=== PATIENT | female | born 1940 | race Caucasian/White ===

== ENCOUNTER 2018-09-15 09:57 | Emergency (ER) | payer MEDICARE, BC, SELFPAY ==
[2018-09-15 10:02] VITALS: BP 178/96; PULSE 77; RESP 16; TEMP 36.4; O2SAT 94
--- NOTE | 2018-09-15 10:38 | NUR.NOTE ---
patient holding pressure to finger, bleeding controlled Nursing Note:
--- NOTE | 2018-09-15 10:56 | ED.GENADUL_ITS ---
Discharge Plan Disposition Patient Disposition: HOME Condition: Improving Discharge Details Chief Complaint: Laceration Clinical Impression: Laceration of finger of left hand Primary Care Provider: Randy Caldwell ED Provider: Wale Medina Home Meds and New Rx's Prescriptions: No Action CALCIUM 600 + D TABLET 1 EACH tablet 1 ea PO DAILY RF: 0 simvastatin 40 MG tablet 40 mg PO DAILY RF: 0 fluticasone-salmeterol [Advair Diskus] 1 EACH blister with device 1 puff Inhalation BID RF: 0 benzonatate 100 MG capsule 100 mg PO TID RF: 0 albuterol sulfate [ProAir HFA] 8.5 GM HFA aerosol inhaler 2 puff Inhalation Q6H PRN RF: 0 sodium chloride [Saline Nose] 45 ML aerosol,spray 1 spray NS BID RF: 0 losartan-hydrochlorothiazide 1 EACH tablet 1 tab-cap PO DAILY Qty: 90 RF: 12 codeine-guaifenesin [Cheratussin AC] 473 ML liquid 10 ml PO HS PRNQty: 120 RF: 0 Discharge Instructions Instructions: Finger Laceration (ED) Additional Instructions: Please keep initial dressing on for the first 24-48 hours then you may remove this and clean wound with mild soap and water and otherwise keep wound clean and dry. Return immediately for any signs of infection otherwise return to emergency department in 12-14 days for suture removal. Referrals: [facility] Emergency Dept. [Outside] (12-14 days for suture removal) Medical Decision Making Patient presents the emergency department for chief complaint of left index finger laceration. Patient states this happened about 45 minutes prior to arrival while she was cutting chicken with a knife. Patient denies any other injury or trauma. Patient has full range of motion, two-point discrimination, normal tendon exam, normal cap refill distal to the injury. Patient consented to wound closure. Patient also consented to wound closure by medical student which I saw and observed. Please see procedure note for which was appropriately performed and done. Patient was unsure of last tetanus and while she thought it was up-to-date she was not completely sure. Did offer tetanus to be given today or for her to wait 48 hours and contact her primary care provider which she stated that she would just prefer to get it here today. Return precautions were discussed. After discussion of diagnosis and plan of care patient has no further needs, questions, or concerns and states clear understanding to return to the emergency department for any worsening symptoms. HPI General Mode of arrival: ambulatory . Date/Time Provider Initiated Documentation: 09/15/18 10:02 . Limitations to Documentation: no limitations . Information obtained by: RN notes reviewed . History of Present Illness 78 year old F presents to the emergency department with the chief complaint of Finger laceration, described as mild, with intensity rated at 1. Quality is described as sharp, and is localized to the left and upper extremity. Patient started experiencing this minute(s) (45) and it has been constant. Patient notes no other symptoms.. Patient did receive the following treat ments prior to arrival, none Related Data Home Medications Medication Instructions Recorded Confirmed Calcium 600 + D Tablet 1 ea PO DAILY 09/06/13 fluticasone-salmeterol [Advair 1 puff INHALATION BID disk 09/10/13 100/50 Diskus] simvastatin 40 mg PO DAILY tab-cap 09/10/13 albuterol sulfate [Proair Hfa] 2 puff INHALATION Q6H PRN inhaler 07/30/16 benzonatate 100 mg PO TID tab-cap 07/30/16 sodium chloride [Saline Nose [place]] 1 spray NS BID spray 07/30/16 losartan-hydrochlorothiazide 1 tab-cap PO DAILY #90 tab-cap 09/28/16 codeine-guaifenesin [Cheratussin 10 ml PO HS PRN #120 ml 10/05/16 Ac Syrup] Allergies Allergy/AdvReac Type Severity Reaction Status Date / Time lisinopril AdvReac Intermediate cough Unverified 09/28/16 08:21 General Stated Complaint: Laceration IVON: 4 Review of Systems Cardiovascular Denies syncope and Denies lightheadedness Musculoskeletal Denies deformity, Denies limited range of motion and Denies numbness Integumentary/Breasts Reports as per HPI Neurologic Denies syncope, Denies numbness and Denies paresthesias PFSH Social History Smoking and Tabacco status: Former Tobacco Use Exam Const General: cooperative and no acute distress Orientation: alert, awake and oriented x3 Limitations: mental status not altered Resp Effort & Inspection: normal respiratory effort and able to speak in complete sentences Cardio Rate: regular rate Rhythm: regular rhythm Neuro General: alert, awake, oriented x3, gait normal, tone normal, moves all extremities, normal light touch, pain and propioception and no focal motor deficits Motor: no movement abnormalities noted Sensory Exam: no sensory deficits noted Extrem General: normal exam except as noted Left upper extremity: hand Details: neuromotor exam normal, neurosensory exam normal, tendon exam normal, tenderness Location: of the 2nd digit Location: at the PIP joint and on the palmar aspect, vascular exam Details: radial pulse present and normal capillary refill, normal ROM of fingers and laceration (Left index palmar aspect at PIP) Course Vital Signs Temperature 36.4 C L 09/15/18 10:02 Pulse 77 09/15/18 10:02 Respiratory Rate 16 09/15/18 10:02 Blood Pressure 178/96 H 09/15/18 10:02 Pulse Oximetry 94 L 09/15/18 10:02 Temperature 36.4 C L 09/15/18 10:02 Temperature Source Temporal Artery Scan 09/15/18 10:02 Pulse 77 09/15/18 10:02 Respiratory Rate 16 09/15/18 10:02 Respiratory Effort Non-Labored 09/15/18 10:08 Blood Pressure 178/96 H 09/15/18 10:02 Blood Pressure Position Sitting 09/15/18 10:02 Pulse Oximetry 94 L 09/15/18 10:02 Oxygen Delivery Method Room Air 09/15/18 10:02 Oxygen Flow Rate 0 09/15/18 10:02 Pain Level 0 09/15/18 10:11 Procedures Laceration Laceration 1: Site: upper extremity Side (If applicable): left Size (cm): 2 Description: linear Depth: simple, single layer Local Anesthetic: Lidocaine 1% (Digital block) Amount of anesthesia used (mL): 4 Pre-repair: wound explored, irrigated extensively and deep structures intact Skin layer closed with: nylon Size (cm): 4-0 Number of sutures: 4 Technique: simple, interrupted
[2018-09-15] MEDS: Lidocaine 1% Multi-Dose 50 ML VIAL (11:43)
== END 2018-09-15 11:44 | disposition home or self-care (01) ==
PROVIDERS: Emergency Provider Nurse Practitioner Family; PCP Emergency Medicine
DX: S61.211A Laceration without foreign body of left index finger without damage to nail, initial encounter (principal); W26.0XXA Contact with knife, initial encounter; Y93.G1 Activity, food preparation and clean up; I10 Essential (primary) hypertension
CPT/HCPCS: 12001; 90471

== ENCOUNTER 2018-09-26 11:06 | Emergency (ER) | payer MEDICARE, BC, SELFPAY ==
--- NOTE | 2018-09-26 11:11 | W.ED.GENAD ---
Discharge Plan Disposition Patient Disposition: HOME Condition: Improving Discharge Details Clinical Impression: Visit for suture removal Primary Care Provider: Randy Caldwell ED Provider: Silverio Mcgovern Home Meds and New Rx's Prescriptions: Continued CALCIUM 600 + D TABLET 1 EACH tablet 1 ea PO DAILY RF: 0 simvastatin 40 MG tablet 40 mg PO DAILY RF: 0 fluticasone propion-salmeterol [Advair Diskus] 1 EACH blister with device 1 puff Inhalation BID RF: 0 benzonatate 100 MG capsule 100 mg PO TID RF: 0 albuterol sulfate [ProAir HFA] 8.5 GM HFA aerosol inhaler 2 puff Inhalation Q6H PRN RF: 0 sodium chloride [Saline Nose] 45 ML aerosol,spray 1 spray NS BID RF: 0 losartan-hydrochlorothiazide 1 EACH tablet 1 tab-cap PO DAILY Qty: 90 RF: 12 codeine-guaifenesin [Cheratussin AC] 473 ML liquid 10 ml PO HS PRNQty: 120 RF: 0 Discharge Instructions Additional Instructions: Continue regular medications. Return for any acute concerns. Medical Decision Making 70-year-old female presents for uneventful suture removal following laceration repair of the left index finger on September 15. The wound is well-appearing, sutures were removed by nursing. Patient stable for discharge. HPI General Mode of arrival: ambulatory. Date/Time Provider Initiated Documentation: 09/26/18 11:07. Limitations to Documentation: no limitations. History of Present Illness 78 year old F presents to the emergency department with the chief complaint of Suture removal, no other complaints, no fever, no redness, Related Data Home Medications Medication Instructions Recorded Confirmed Calcium 600 + D Tablet 1 ea PO DAILY 09/06/13 fluticasone propion-salmeterol 1 puff INHALATION BID disk 09/10/13 [Advair Diskus] simvastatin 40 mg PO DAILY tab-cap 09/10/13 albuterol sulfate [ProAir HFA] 2 puff INHALATION Q6H PRN inhaler 07/30/16 benzonatate 100 mg PO TID tab-cap 07/30/16 sodium chloride [Saline Nose] 1 spray NS BID spray 07/30/16 losartan-hydrochlorothiazide 1 tab-cap PO DAILY #90 tab-cap 09/28/16 codeine-guaifenesin [Cheratussin 10 ml PO HS PRN #120 ml 10/05/16 AC] Allergies Allergy/AdvReac Type Severity Reaction Status Date / Time lisinopril AdvReac Intermediate cough Unverified 09/28/16 08:21 General IVON: 4 Review of Systems Review of Systems For systems reviewed and otherwise negative [facility] Social History Smoking and Tabacco status: Former Tobacco Use Exam Narrative Exam Narrative: GEN: awake, alert, oriented 3. Pleasant, well groomed, interactive. HEAD: Normocephalic, atraumatic ENT: Mucous membranes moist, oropharynx unremarkable, External ear exam unremarkable EYES: PERRL, EOMI EXT: Full ROM, no edema, no rash. Left index finger volar surface with 4 sutures and healing laceration, no redness, distal two-point discrimination intact at 1 cm Neuro: Grossly normal neurologic exam, conversant, interactive. Psych: Speech fluent, thoughts congruent, affect normal
[2018-09-26 11:24] VITALS: BP 162/94; PULSE 70; RESP 16; TEMP 36.6; O2SAT 97
== END 2018-09-26 11:27 | disposition home or self-care (01) ==
LOC: ER 11:18
PROVIDERS: Emergency Provider Emergency Medicine; PCP Emergency Medicine
DX: S61.211D Laceration without foreign body of left index finger without damage to nail, subsequent encounter (principal); W26.0XXD Contact with knife, subsequent encounter; Z48.02 Encounter for removal of sutures

== ENCOUNTER 2019-08-22 02:28 | Outpatient (CLI) | payer MEDICARE, BC, SELFPAY ==
--- NOTE | 2019-08-22 08:08 | DI.RAD_ITS ---
EXAM: XR CHEST 2V PA LATERAL INDICATION: fatigue,SLIGHT SOB, R53.83. COMPARISON: CHEST 2 VIEWS PA,LAT from 10/12/2016 TECHNIQUE: 2D digital imaging was performed. FINDINGS: The heart size and pulmonary vasculature are within normal limits. The lungs are clear. No pleural effusion or pneumothorax is identified. There is an old thoracic compression fracture deformity. De generative changes are seen in the spine. IMPRESSION: No acute pulmonary process.
== END 2019-08-22 02:48 ==
PROVIDERS: PCP Emergency Medicine; Visit Provider Emergency Medicine
DX: R06.02 Shortness of breath (principal); R53.83 Other fatigue
CPT/HCPCS: 36415; 80053; 85652; 71046; 84443; 85025; 86140

== ENCOUNTER 2019-08-22 02:37 | Outpatient (CLI) | payer MEDICARE, BC, SELFPAY ==
[2019-08-22 08:25] LABS: Absolute Basophil Count 0.01 k/cumm (0.0-0.2); Absolute Eosinophil Count 0.18 k/cumm (0.0-0.7); Absolute Lymphocyte Count 1.21 k/cumm (1.2-3.4); Absolute Monocyte Count 0.48 k/cumm (0.11-0.7); Absolute Neutrophil Count 3.16 k/cumm (1.2-6.7); Basophils % 0.2; Eosinophils % 3.6; HCT 42.7 % (36.0-46.0); HGB 14.3 g/dL (12.0-15.5); Mean Corp. HGB Concentration 33.5 g/dL (32.0-36.0); Mean Corpuscular Volume 95.5 fL (80-95); Monocytes % 9.5; Neutrophils % 62.7; Platelet Count 256 x1000/uL (130-400); RBC 4.47 m/cumm (4.00-5.20); RBC Distribution Width 14.1 % (11.7-14.6); White Blood Cell Count 5.04 k/cumm (4.4-10.8)
[2019-08-22 09:20] LABS: ESR 24 mm/hr (0-30)
[2019-08-22 09:26] LABS: ALT 24 U/L (14-59); AST 19 U/L (15-37); Albumin 3.9 g/dL (3.4-5.0); Alkaline Phosphatase 61 U/L (46-116); Anion Gap 8.4 mmol/L (3-11); BUN 14 mg/dL (7-18); Bilirubin, Total 0.6 mg/dL (0.2-1.0); C-Reactive Protein 0.74 mg/dL (0.0-0.3); CO2 28.6 mmol/L (21.0-32.0); CREATININE 0.95 mg/dL (0.55-1.02); Calcium 9.3 mg/dL (8.5-10.1); Chloride 99 mmol/L (98-107); Estimated GFR 56.75 (mL/min/1.73m2); Glucose 109 mg/dL (74-106); Potassium 4.1 mmol/L (3.5-5.1); Sodium 136 mmol/L (136-145); TSH 1.73 uIU/mL (0.36-3.74); Total Protein 7.1 g/dL (6.4-8.2)
== END 2019-08-22 02:57 ==
PROVIDERS: PCP Emergency Medicine; Visit Provider Emergency Medicine
DX: E03.9 Hypothyroidism, unspecified (principal); R53.83 Other fatigue
CPT/HCPCS: 36415; 80053; 85652; 84443; 85025; 86140

== ENCOUNTER 2021-07-28 18:57 | Outpatient (REF) | payer MEDICARE, BC, SELFPAY ==
[2021-07-29 11:41] LABS: COVID-19 RT-PCR UVMMC Result Negative (Negative)
== END 2021-07-28 18:58 | disposition home or self-care (01) ==
LOC: LBN 18:57
PROVIDERS: PCP Emergency Medicine; Visit Provider Emergency Medicine
DX: R53.83 Other fatigue; Z20.822 Contact with and (suspected) exposure to COVID-19
CPT/HCPCS: U0003; U0005

== ENCOUNTER 2021-09-02 12:08 | Outpatient (CLI) | payer MEDICARE, BC, SELFPAY ==
--- NOTE | 2021-09-02 11:30 | DI.RAD_ITS ---
Exam(s) XR HIP RT COMPLETE AP PELVIS EXAM: XR HIP RT COMPLETE AP PELVIS CLINICAL HISTORY: right hip pain. TECHNIQUE: 2D digital imaging was performed of the right hip. Three images were obtained. AP pelvis and lateral right hip views were obtained. COMPARISON: No exams were available for comparison FINDINGS: BONES: No acute fracture is present. No bony destructive lesion is seen. JOINTS: Mild degenerative changes are seen in the hips bilaterally with joint space narrowing and per iarticular spurring. SOFT TISSUE: There is an IUD in the pelvis. IMPRESSION: Mild degenerative changes of the hips. No acute fracture or dislocation. DATA REPOSITORY: RADIATION DOSE DELIVERED:
== END 2021-09-02 12:09 | disposition home or self-care (01) ==
LOC: DIORS 12:08
PROVIDERS: PCP Family Medicine; Referring Provider Emergency Medicine; Visit Provider Student in an Organized Health Care Education/Training Program
DX: M25.551 Pain in right hip (principal); M16.0 Bilateral primary osteoarthritis of hip; M70.61 Trochanteric bursitis, right hip; M16.11 Unilateral primary osteoarthritis, right hip; M54.2 Cervicalgia
CPT/HCPCS: 99204; 99213; 73502

== ENCOUNTER 2022-08-11 02:06 | Outpatient (CLI) | payer MEDICARE, BC, SELFPAY ==
[2022-08-11 09:49] LABS: HCT 42.2 % (36.0-46.0); HGB 13.8 g/dL (11.2-15.7); MCH 31.3 pg (27.0-33.0); MCHC 32.7 % (32.0-36.0); MCV 96 fL (80-95); MPV 9.3 fL (8.0-11.0); Platelet Count 194 10^3/uL (130-400); RBC 4.41 10^6/uL (3.93-5.22); RDW-SD 49.5 fL; WBC 6.07 10^3/uL (4.4-10.8)
[2022-08-11 09:54] LABS: ESR 25 mm/hr (0-30)
[2022-08-11 10:12] LABS: ALT 16 U/L (14-59); AST 25 U/L (15-37); Albumin 4.2 g/dL (3.4-5.0); Alkaline Phosphatase 57 U/L (46-116); BUN 22 mg/dL (7-18); Bilirubin, Total 0.5 mg/dL (0.2-1.0); CREATININE 1.2 mg/dL (0.55-1.02); Calcium 10.3 mg/dL (8.5-10.1); Chloride 101 mmol/L (98-107); Estimated GFR 45.19 (mL/min/1.73m2); Glucose 100 mg/dL (74-106); Potassium 4.2 mmol/L (3.5-5.1); Sodium 138 mmol/L (136-145); Total Protein 7.7 g/dL (6.4-8.2)
[2022-08-11 10:46] LABS: Anion Gap 10.5 mmol/L (3-11); CO2 26.5 mmol/L (21.0-32.0)
[2022-08-11 23:01] LABS: CRP, High Sensitivity 2.14 mg/L (See Note)
== END 2022-08-11 02:07 | disposition home or self-care (01) ==
LOC: LOS 02:06
PROVIDERS: PCP Nurse Practitioner Family; Visit Provider Nurse Practitioner Family
DX: E78.5 Hyperlipidemia, unspecified (principal); I10 Essential (primary) hypertension; M70.61 Trochanteric bursitis, right hip; M16.11 Unilateral primary osteoarthritis, right hip; M54.2 Cervicalgia
CPT/HCPCS: 36415; 80053; 85027; 85652; 86141

== ENCOUNTER 2022-08-26 01:47 | Outpatient (CLI) | payer MEDICARE, BC, SELFPAY ==
[2022-08-26 12:43] LABS: ALT 16 U/L (14-59); AST 20 U/L (15-37); Albumin 3.8 g/dL (3.4-5.0); Alkaline Phosphatase 51 U/L (46-116); BUN 23 mg/dL (7-18); Bilirubin, Total 0.5 mg/dL (0.2-1.0); CREATININE 0.9 mg/dL (0.55-1.02); Calcium 9.8 mg/dL (8.5-10.1); Chloride 101 mmol/L (98-107); Estimated GFR 63.83 (mL/min/1.73m2); Glucose 96 mg/dL (74-106); Potassium 3.7 mmol/L (3.5-5.1); Sodium 139 mmol/L (136-145); Total Protein 7.1 g/dL (6.4-8.2)
== END 2022-08-26 01:48 | disposition home or self-care (01) ==
LOC: LOS 01:48
PROVIDERS: PCP Nurse Practitioner Family; Visit Provider Nurse Practitioner Family
DX: Z51.81 Encounter for therapeutic drug level monitoring (principal)
CPT/HCPCS: 36415; 80053

== ENCOUNTER 2022-09-20 03:21 | Outpatient (CLI) | payer MEDICARE, BC, SELFPAY ==
[2022-09-20 12:33] LABS: ALT 20 U/L (14-59); AST 16 U/L (15-37); Albumin 3.9 g/dL (3.4-5.0); Alkaline Phosphatase 56 U/L (46-116); Anion Gap 8.5 mmol/L (3-11); BUN 21 mg/dL (7-18); Bilirubin, Total 0.6 mg/dL (0.2-1.0); CO2 29.5 mmol/L (21.0-32.0); Calcium 9.8 mg/dL (8.5-10.1); Chloride 101 mmol/L (98-107); Estimated GFR 56.25 (mL/min/1.73m2); Glucose 109 mg/dL (74-106); PHOSPHORUS 3.6 mg/dL (2.6-4.7); Potassium 4.4 mmol/L (3.5-5.1); Sodium 139 mmol/L (136-145); Total Protein 7.4 g/dL (6.4-8.2)
== END 2022-09-20 03:22 | disposition home or self-care (01) ==
LOC: LOS 03:22
PROVIDERS: PCP Nurse Practitioner Family; Visit Provider Nurse Practitioner Family
DX: I10 Essential (primary) hypertension (principal); Z79.899 Other long term (current) drug therapy; E78.5 Hyperlipidemia, unspecified; J45.909 Unspecified asthma, uncomplicated
CPT/HCPCS: 36415; 80053; 80069

== ENCOUNTER 2023-08-08 10:12 | Outpatient (CLI) | payer MEDICARE, BC, SELFPAY ==
[2023-08-08 12:35] LABS: Anion Gap 6.3 mmol/L (3-11); BUN 19 mg/dL (7-18); CO2 30.7 mmol/L (21.0-32.0); CREATININE 1.2 mg/dL (0.55-1.02); Calcium 9.7 mg/dL (8.5-10.1); Chloride 100 mmol/L (98-107); Estimated GFR 44.91 (mL/min/1.73m2); Glucose 107 mg/dL (74-106); Potassium 3.7 mmol/L (3.5-5.1); Sodium 137 mmol/L (136-145)
== END 2023-08-08 10:13 | disposition home or self-care (01) ==
LOC: LOS 10:12
PROVIDERS: PCP Nurse Practitioner Family; Referring Provider Nurse Practitioner Family; Visit Provider Nurse Practitioner Family
DX: I10 Essential (primary) hypertension (principal)
CPT/HCPCS: 36415; 80048

== ENCOUNTER 2024-08-09 03:53 | Outpatient (CLI) | payer MEDICARE, BC, SELFPAY ==
[2024-08-09 10:06] LABS: Lab Add On Test DONE
[2024-08-09 12:49] LABS: HCT 43.6 % (36.0-46.0); HGB 14.3 g/dL (11.2-15.7); MCHC 32.8 % (32.0-36.0); MCV 101 fL (80-95); MPV 10.2 fL (8.0-11.0); Platelet Count 190 10^3/uL (130-400); RBC 4.33 10^6/uL (3.93-5.22); RDW 14.6 % (11.7-14.6); RDW-SD 54.4 fL; WBC 5.15 10^3/uL (4.4-10.8)
[2024-08-09 13:04] LABS: ALT 15 U/L (14-59); AST 20 U/L (15-37); Albumin 3.9 g/dL (3.4-5.0); Alkaline Phosphatase 53 U/L (46-116); Anion Gap 6.2 mmol/L (3-11); BUN 22 mg/dL (7-18); Bilirubin, Total 0.79 mg/dL (0.2-1.0); CO2 30.8 mmol/L (21.0-32.0); CREATININE 1.4 mg/dL (0.55-1.02); Calcium 9.8 mg/dL (8.5-10.1); Chloride 102 mmol/L (98-107); Glucose 104 mg/dL (74-106); Potassium 4.3 mmol/L (3.5-5.1); Sodium 139 mmol/L (136-145); Total Protein 7.6 g/dL (6.4-8.2)
[2024-08-09 13:25] LABS: Hemoglobin A1C 5.7 % (<5.7)
== END 2024-08-09 03:54 | disposition home or self-care (01) ==
LOC: LOS 03:53
PROVIDERS: PCP Nurse Practitioner Family; Visit Provider Nurse Practitioner Family
DX: Z00.00 Encounter for general adult medical examination without abnormal findings (principal); I10 Essential (primary) hypertension; M35.3 Polymyalgia rheumatica; Z51.81 Encounter for therapeutic drug level monitoring; R73.09 Other abnormal glucose; E78.5 Hyperlipidemia, unspecified
CPT/HCPCS: 36415; 80053; 85027; 83036